=== PATIENT | female | born 1945 | race American Indian/Alaskan Native ===

== ENCOUNTER 2024-07-23 05:18 | Observation (INO) | payer OTHER ==
[2024-07-23 05:40] VITALS: BMI 37.3
[2024-07-23 08:08] LABS: Hemoglobin A1c 5.9 % (4.0-6.0)
[2024-07-23 08:21] LABS: Troponin I Less than 0.010 ng/mL (< 0.028)
[2024-07-23] MEDS ORDERED: Regadenoson 0.4 MG/5 ML SYRINGE ONE (10:28)
[2024-07-23 10:42] LABS: Troponin I Less than 0.010 ng/mL (< 0.028)
[2024-07-23] MEDS ORDERED: Glucagon 1 MG/ML KIT IM PRN (10:54)
[2024-07-23] MEDS ORDERED: Dextrose 50% Abboject 50 ML SYRINGE SLOW IVP PRN (10:54)
[2024-07-23] MEDS ORDERED: Dextrose 5% in Water 1,000 ML IV PRN (10:54)
[2024-07-23] MEDS ORDERED: Insulin Lispro 100 UNIT/ML 10 ML VIAL SC PRN ×2 (10:54)
[2024-07-23] MEDS ORDERED: Ipratropium/Albuterol 3 ML NEB NEB PRN (14:09)
[2024-07-23] MEDS: Levothyroxine Sodium 100 MCG TAB PO SCH (14:45)
[2024-07-23] MEDS: Ipratropium/Albuterol 3 ML NEB NEB SCH (14:54)
[2024-07-23 18:24] VITALS: BP 157/83; TEMP 98.1
[2024-07-23] MEDS ORDERED: Fluticasone Propionate HFA 44 MCG AER INH SCH (18:30)
[2024-07-24] MEDS ORDERED: Levothyroxine Sodium 100 MCG TAB PO SCH (06:00)
[2024-07-24] MEDS ORDERED: Atorvastatin Calcium 40 MG TAB PO SCH (09:00)
== END 2024-07-23 16:33 | disposition home or self-care (01) ==
LOC: 2SE 05:18 → INTOOBSV 05:18
PROVIDERS: ADMIT Student in an Organized Health Care Education/Training Program; ATTEND Student in an Organized Health Care Education/Training Program
DX: R07.89 Other chest pain (principal); I10 Essential (primary) hypertension; E11.9 Type 2 diabetes mellitus without complications; E78.5 Hyperlipidemia, unspecified; E03.9 Hypothyroidism, unspecified; J45.909 Unspecified asthma, uncomplicated; Z96.653 Presence of artificial knee joint, bilateral; Z90.89 Acquired absence of other organs; Z88.5 Allergy status to narcotic agent; Z91.041 Radiographic dye allergy status; Z79.890 Hormone replacement therapy; Z79.899 Other long term (current) drug therapy
CPT/HCPCS: 78452; 83036; 84443; 84484 ×2; 93017; 94640; A9502; G0378; J2785 ×2; 36415; J7620